=== PATIENT | male | born 1995 | race American Indian/Alaskan Native ===

== ENCOUNTER 2017-06-20 23:30 | Emergency (ER) | payer SELFPAY ==
[2017-06-20 23:30] VITALS: BMI 25.1
[2017-06-21 00:08] VITALS: TEMP 98.1
--- NOTE | 2017-06-21 00:23 | ED PDOC ---
Arrival/HPI <Linette,Dariusz - Last Filed: 06/21/17 03:28> <Colten Arnett - Last Filed: 06/21/17 03:40> - General Chief Complaint: Abdominal Pain Time Seen by Provider: 06/20/17 23:46 - History of Present Illness Narrative History of Present Illness (Text): 06/21/17 00:20 21yo M here for evaluation of penile discomfort. Patient states that two days ago he felt some right lower quadrant abdominal pain which has completely resolved. Later that day, he started noticing some discomfort while urination. Described as some burning type of sensation. Denies any penile sores. Denies any urethral discharge. Denies any F/C. Last sexual encounter 4 days ago, no condom used. 2 sexual partners over the past 2 years. States that his partner does not have similar symptoms. PMD: None PMHx: Asthma PShx: Denies NKDA (Dariusz Sue) Past Medical History - Provider Review Nursing Documentation Reviewed: Yes - Past Medical History Past Medical History: No Previous - Pulmonary Hx Asthma: Yes - Psychiatric Hx Depression: No Hx Emotional Abuse: No Hx Physical Abuse: No Hx Substance Use: No - Past Surgical History Past Surgical History: No Previous - Anesthesia Hx Anesthesia: No - Suicidal Assessment Feels Threatened In Home Enviroment: No <Dariusz Sue - Last Filed: 06/21/17 03:28> Family/Social History Family/Social History: No Known Family HX Smoking Status: Never Smoked Hx Alcohol Use: No Hx Substance Use: No Hx Substance Use Treatment: No <Dariusz Sue - Last Filed: 06/21/17 03:28> Allergies/Home Meds <Dariusz Sue - Last Filed: 06/21/17 03:28> <Colten Arnett - Last Filed: 06/21/17 03:40> Allergies/Adverse Reactions: Allergies No Known Allergies Allergy (Verified 06/21/17 00:08) Home Medications: Home Meds Medication Instructions Recorded Confirmed No Known Home Med 06/21/17 06/21/17 Review of Systems - Physician Review All systems were reviewed & negative as marked: Yes - Review of Systems Constitutional: Normal. absent: Fevers Respiratory: absent: SOB, Cough Cardiovascular: absent: Chest Pain, CISSE Gastrointestinal: absent: Abdominal Pain, Nausea, Vomiting Genitourinary Male: Dysuria Musculoskeletal: absent: Back Pain Neurological: absent: Headache, Dizziness <Dariusz Sue - Last Filed: 06/21/17 03:28> Physical Exam Mental Status: Positive for: Alert and Oriented X 3 - Systems Exam Head: Present: Atraumatic, Normocephalic Extroacular Muscles: Present: EOMI Conjunctiva: Present: Normal Mouth: Present: Moist Mucous Membranes Respiratory/Chest: Present: Clear to Auscultation. No: Respiratory Distress, Accessory Muscle Use, Wheezes Cardiovascular: Present: Normal S1, S2 Abdomen: No: Tenderness, Distention, Peritoneal Signs, Rebound, Guarding, McBurney's Point Tender Genitourinary Male: Present: Normal External Genitalia. No: Circumcised Penis, Lesions, Penile Discharge, Testicle Tenderness, Penile Swelling, Erythema, Testicle Swelling Lower Extremity: Present: Normal Inspection. No: CALF TENDERNESS Neurological: Present: GCS=15 Skin: Present: Warm, Dry, Normal Color Psychiatric: Present: Alert, Oriented x 3 <Dariusz Sue - Last Filed: 06/21/17 03:28> Medical Decision Making <Dariusz Sue - Last Filed: 06/21/17 03:28> <Colten Arnett - Last Filed: 06/21/17 03:40> ED Course and Treatment: 06/21/17 00:29 21yo M with Penile Discomfort - GC/Chlamydia - UA - CT Abd/Pelvis - Reassess, treat and dispo 06/21/17 03:28 CT abd negative for any acute pathology. - Patient treated with Azithromycin 1g PO and Rocephin 250mg IM - Discussed results with patient. Counseled him to alert sexual partners for treatment if GC/Chlamydia positive result as noted by our staff. - Patient to be discharged home with follow up with a primary care physician. Return to the ED with any concerning symptoms. (Dariusz Sue) In agreement with resident note which contains more details about the patient. Patient was seen and evaluated with resident. Came up with plan and treatment together. A 21 year old male who presents to the emergency department complaining of dysuria for past [address] abdomen pelvis negative. Pending CG/Chlamydia test results. Patient will be contact if GC/Chlamydia is positive. Stable for discharge. Advised to follow up with PMD within few days and return to emergency department for new/worsening symptoms. (Coltne Arnett) - Lab Interpretations Lab Results: Lab Results 06/21/17 00:25: Urine Color Yellow, Urine Appearance Clear, Urine pH 6.0, Ur Specific [place] >= 1.030, Urine Protein Trace H, Urine Glucose (UA) Negative, Urine Ketones Trace H, Urine Blood Negative, Urine Nitrate Negative, Urine Bilirubin Negative, Urine Urobilinogen 1.0 H, Ur Leukocyte Esterase Negative, Urine RBC 0 - 2, Urine WBC 0 - 2, Ur Epithelial Cells 0 - 2 - RAD Interpretation Radiology Orders: 06/21/17 01:26 ABD & PELVIS W/O PO OR IV CONT [CT] Stat - Medication Orders Current Medication Orders: Discontinued Medications Azithromycin (Zithromax) 1,000 mg PO STAT STA PRN Reason: Protocol Stop: 06/21/17 03:24 Ceftriaxone Sodium (Rocephin) 250 mg IM STAT STA PRN Reason: Protocol Stop: 06/21/17 03:24 <Dariusz Sue - Last Filed: 06/21/17 03:28> - PA / TELECASTING ENGINEER / Resident Statement / has reviewed & agrees with the documentation as recorded. MD/ has examined the patient and agrees with the treatment plan. <Colten Arnett - Last Filed: 06/21/17 03:40> - Scribe Statement Sam Reyes Provider Scribe Attestation: All medical record entries made by the Scribe were at my direction and personally dictated by me. I have reviewed the chart and agree that the record accurately reflects my personal performance of the history, physical exam, medical decision making, and the department course for this patient. I have also personally directed, reviewed, and agree with the discharge instructions and disposition. (Colten Arnett) Disposition/Present on Arrival - Present on Arrival Any Indicators Present on Arrival: No History of DVT/PE: No History of Uncontrolled Diabetes: No Urinary Catheter: No History of Decub. Ulcer: No History Surgical Site Infection Following: None - Disposition Have Diagnosis and Disposition been Completed?: Yes Disposition Time: 03:32 Patient Plan: Discharge <Dariusz Sue - Last Filed: 06/21/17 03:28> <Colten Arnett - Last Filed: 06/21/17 03:40> - Disposition Diagnosis: Urethritis Disposition: HOME/ ROUTINE Patient Problems: Current Active Problems Problem Status Onset Urethritis Acute Condition: GOOD Discharge Instructions (ExitCare): Gonorrhea (ED), Nonspecific Urethritis in Men (ED) Additional Instructions: 1. Follow up with a primary care physician in 3-5 days 2. Gonorrhea/Chlamydia testing was sent. You will be contacted if results are positive 3. You must alert any sexual partners to watch for concerning symptoms. They must also be treated if G/C results positive. 4. Return to the ER with any concerning symptoms Forms: [employer] ([place]ic)
[2017-06-21 01:08] LABS: URINE BILIRUBIN NEGATIVE (NEGATIVE); URINE BLOOD NEGATIVE (NEGATIVE); URINE GLUCOSE (UA) NEGATIVE (NEGATIVE); URINE LEUKOCYTE ESTERASE NEGATIVE Leu/uL (NEGATIVE); URINE NITRATE NEGATIVE (NEGATIVE); URINE PROTEIN TRACE mg/dL (<30 mg/dL)
[2017-06-21 01:12] LABS: URINE APPEARANCE CLEAR (CLEAR); URINE COLOR YELLOW (YELLOW)
[2017-06-21 01:19] LABS: URINE EPITHELIAL CELLS 0 - 2 /hpf (0-5); URINE RBC 0 - 2 /hpf (0-2); URINE WBC 0 - 2 /hpf (0-6)
--- NOTE | 2017-06-21 03:20 | CT ---
EXAM: CT Abdomen and Pelvis Without Intravenous Contrast CLINICAL HISTORY: 21 years old, male; Pain; Abdominal pain; Generalized; Additional info: Abd pain TECHNIQUE: Axial computed tomography images of the abdomen and pelvis without intravenous contrast. This CT exam was performed using one or more of the following dose reduction techniques: automated exposure control, adjustment of the mA and/or kV according to patient size, and/or use of iterative reconstruction technique. Coronal and sagittal reformatted images were created and reviewed. COMPARISON: No relevant prior studies available. FINDINGS: Limitations: Lack of intravenous contrast. Lower thorax: Mild cardiomegaly. ABDOMEN: Liver: Unremarkable. Gallbladder and bile ducts: No calcified stones. No ductal dilation. Pancreas: Unremarkable. No ductal dilation. Spleen: No splenomegaly. Adrenals: No mass. Kidneys and ureters: No renal calculi. No hydronephrosis. Stomach and bowel: No definite mural thickening. No obstruction. Appendix: No definite findings to suggest acute appendicitis. PELVIS: Bladder: Unremarkable. No stones. Reproductive: Unremarkable as visualized. ABDOMEN and PELVIS: Intraperitoneal space: No significant fluid collection. No free air. Bones/joints: No acute fracture. Soft tissues: Unremarkable. Vasculature: Unremarkable. No aneurysm. Lymph nodes: No pathologically enlarged lymph nodes. IMPRESSION: 1. No definite acute intraabdominal abnormality. 2. Incidental/non-acute findings are described above.
[2017-06-21] MEDS ORDERED: cefTRIAXone (Rocephin) 250 mg Inj IM STA (03:23)
[2017-06-21 03:52] VITALS: PULSE 69; RESP 16; O2SAT 100
[2017-06-21 03:53] VITALS: BP 112/74
== END 2017-06-21 03:54 | disposition home or self-care (01) ==
LOC: ED 23:30
DX: N34.2 Other urethritis (principal)
CPT/HCPCS: 74176; 81001; 87491; 87591; 96372; 99283; J0696

== ENCOUNTER 2018-05-20 20:31 | Emergency (ER) | payer SELFPAY ==
[2018-05-20 20:32] VITALS: BMI 25.1
[2018-05-20 21:18] VITALS: RESP 18; TEMP 99.5
--- NOTE | 2018-05-20 21:39 | ED PDOC ---
Arrival/HPI - General Historian: Patient - History of Present Illness Time/Duration: Other (3 days) Symptom Onset: Gradual Symptom Course: Worsening Quality: Aching, Burning - General Chief Complaint: ENT Problem Time Seen by Provider: 05/20/18 20:35 - History of Present Illness Narrative History of Present Illness (Text): 05/20/18 21:43 22-year-old male presents today with a three-day history of sore throat and nasal congestion. Patient denies fevers or chills. Patient complaining of achy burning sensation in the throat worse with swallowing. Denies trismus or drooling. Denies cough. Denies sick contacts. Patient states he tried Chloraseptic spray without improvement. Patient states he is able to eat and drink with minimal pain. No other complaints (Petra Ye) Past Medical History - Provider Review Nursing Documentation Reviewed: Yes - Travel History Have you recently traveled outside [place] w/in the past 3 mons?: No - Infectious Disease Hx of Infectious Diseases: None - Past Medical History Past Medical History: No Previous - Pulmonary Hx Asthma: Yes - Psychiatric Hx Depression: No Hx Emotional Abuse: No Hx Physical Abuse: No Hx Substance Use: No - Past Surgical History Past Surgical History: No Previous - Anesthesia Hx Anesthesia: No - Suicidal Assessment Feels Threatened In Home Enviroment: No Family/Social History - Physician Review Nursing Documentation Reviewed: Yes Family/Social History: Unknown Family HX Smoking Status: Never Smoked Hx Alcohol Use: No Hx Substance Use: No Hx Substance Use Treatment: No Allergies/Home Meds Allergies/Adverse Reactions: Allergies No Known Allergies Allergy (Verified 06/21/17 00:08) Review of Systems - Review of Systems Constitutional: absent: Fatigue, Fevers ENT: Sore Throat, Sinus Congestion Respiratory: absent: SOB, Cough Cardiovascular: absent: Chest Pain, Palpitations Gastrointestinal: absent: Abdominal Pain, Nausea, Vomiting Musculoskeletal: absent: Arthralgias Skin: absent: Rash, Pruritis Neurological: absent: Headache, Dizziness Psychiatric: absent: Anxiety, Depression Physical Exam Vital Signs Reviewed: Yes Temperature: Afebrile Blood Pressure: Normal Pulse: Regular Respiratory Rate: Normal Appearance: Positive for: Well-Appearing, Non-Toxic, Comfortable Pain Distress: None Mental Status: Positive for: Alert and Oriented X 3 - Systems Exam Head: Present: Atraumatic Conjunctiva: Present: Normal Ears: Present: Normal, NORMAL TM Mouth: Present: Moist Mucous Membranes, Normal Lips, Normal Tounge. No: Drooling, Trismus Pharnyx: Present: ERYTHEMA. No: EXUDATE, TONSILS ENLARGED, Peritonsilar Swelling, Uvular Deviation, Muffled/Hoarse Voice, Strider, Soft Palate/Uvular Edema Nose (External): Present: Atraumatic Nose (Internal): Present: Normal Inspection Neck: Present: Normal Range of Motion, Trachea Midline. No: Lymphadenopathy Respiratory/Chest: Present: Clear to Auscultation, Good Air Exchange. No: Respiratory Distress, Accessory Muscle Use Cardiovascular: Present: Regular Rate and Rhythm, Normal S1, S2. No: Murmurs Upper Extremity: Present: Normal ROM Lower Extremity: Present: Normal ROM Neurological: Present: GCS=15, Speech Normal Skin: Present: Warm, Dry, Normal Color. No: Rashes Psychiatric: Present: Alert Vital Signs Temp Pulse Resp BP Pulse Ox 05/20/18 22:04 65 18 112/76 100 05/20/18 20:46 99.5 F 56 L 18 112/70 99 Medical Decision Making ED Course and Treatment: 05/20/18 21:45 Patient is nontoxic well appearing in no distress. Vital signs are stable Tolerating p.o. fluids and solids toradol amoxicillin I advised follow up with primary care physician within the next 2 days, advised to increase fluids take medications as prescribed and return if symptoms worsen persist or if new symptoms develop Patient verbalizes understanding of discharge instructions and need for immediate followup. all aspects of this case were discussed the attending of record. IMPRESSION; pharyngitis Motrin every 6 hours as needed for pain/fever reduction Increase fluids amoxicillin; One tablet 3 times daily x10 days Flonase; 2 sprays each nostril once daily. Follow up primary care physician within the next 2 days Saltwater gargles, throat lozenges Return if symptoms worsen persist or if the symptoms develop (Petra Ye) - Medication Orders Current Medication Orders: Discontinued Medications Amoxicillin (Amoxil 500 Mg Cap) 500 mg PO STAT STA PRN Reason: Protocol Stop: 05/20/18 21:33 Last Admin: 05/20/18 21:57 Dose: 500 mg Ketorolac Tromethamine (Toradol) 60 mg IM STAT STA Stop: 05/20/18 21:33 Last Admin: 05/20/18 21:57 Dose: 60 mg MAR Pain Assessment Document 05/20/18 21:57 GMD (Rec: 05/20/18 21:57 GMD [id number]) Pain Reassessment Is this a pain reassessment? No Presence of Pain Presence of Pain Yes IM Administration Charges Document 05/20/18 21:57 GMD (Rec: 05/20/18 21:57 GMD [id number]) Injection Site MAR Injection Site Right Gluteus Case Charges for Administration # of IM Administrations 1 Disposition/Present on Arrival - Present on Arrival Any Indicators Present on Arrival: No History of DVT/PE: No History of Uncontrolled Diabetes: No Urinary Catheter: No History of Decub. Ulcer: No History Surgical Site Infection Following: None - Disposition Have Diagnosis and Disposition been Completed?: Yes Disposition Time: 21:36 Patient Plan: Discharge - Disposition Diagnosis: Pharyngitis Disposition: HOME/ ROUTINE Condition: GOOD Discharge Instructions (ExitCare): Sore Throat, Adult (DC) Additional Instructions: Motrin every 6 hours as needed for pain/fever reduction Increase fluids amoxicillin; One tablet 3 times daily x10 days Flonase; 2 sprays each nostril once daily. Follow up primary care physician within the next 2 days Saltwater gargles, throat lozenges Return if symptoms worsen persist or if the symptoms develop Prescriptions: Amoxicillin 500 mg PO TID #30 tab Fluticasone Nasal [Flonase] 2 spr NS DAILY #1 spr Ibuprofen [Motrin] 600 mg PO Q6H PRN #20 tab PRN Reason: pain/fever reduction Referrals: Israel Kelley DO [Staff Provider] - Follow up with primary [facility] [place] [Outside] - Follow up with primary Joe Mayer MD [Staff Provider] - Follow up with primary Forms: [employer] ([place]), WORK NOTE
[2018-05-20 22:05] VITALS: BP 112/76; PULSE 65; O2SAT 100
== END 2018-05-20 22:05 | disposition home or self-care (01) ==
LOC: ED 20:31
DX: J02.9 Acute pharyngitis, unspecified (principal)
CPT/HCPCS: 96372; 99283; J1885